=== PATIENT | female | born 1985 | race Caucasian/White ===

== ENCOUNTER → 2017-11-05 | Outpatient (CLI) | payer OTHER ==
[2017-11-05 11:24] LABS: FREE T3 2.36 PG/ML (2.18-3.98); FREE T4 0.92 NG/DL (0.76-1.46); HDL CHOLESTEROL 31.8 MG/DL (40.0-60.0); LDL CHOLESTEROL 135 MG/DL (0-99)
[2017-11-05 15:13] LABS: HEMOGLOBIN A1b 0.9 %; HEMOGLOBIN Ao 85.2 %; HEMOGLOBIN LA1C 2.1 %; HEMOGLOBIN P3 3.6 %
== END ==
LOC: PLAB 09:41
PROVIDERS: ATTEND Obstetrics & Gynecology
DX: R73.03 Prediabetes (principal); E03.9 Hypothyroidism, unspecified; E78.5 Hyperlipidemia, unspecified; N92.0 Excessive and frequent menstruation with regular cycle
CPT/HCPCS: 36415; 80061; 83036; 84403; 84439; 84443; 84481; 84681

== ENCOUNTER 2018-10-27 11:06 | Inpatient (IN) ==
--- NOTE | 2018-10-27 11:34 | ED ---
History of Present Illness Primary Care Physician: [facility] Primary Care Physician Smoke Inspector Dr. Daniels Chief Complaint: I feel a bulge in my vagina History of Present Illness: 33-year-old at 17 weeks and 3 days presents complaining of a bulge note while in OB ED patient screaming and subsequently ruptured membranes. Reports cramping times 2 days. 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 Past medical history denies Allergies denies Past surgical history denies Social history negative x3 previous tobacco use Weeks Gestation:: 17 Para: 0 : 1 Review of Systems All other systems reviewed negative except as stated in HPI Exam - Constitutional moderate distress - Routine HEENT Exam Head: Present: normocephalic ENT: Present: mucous membranes moist - Routine Neck Exam Present: supple - Routine Chest/Breast/Axilla Exam Chest wall: Absent: tenderness - Routine Respiratory Exam Absent: accessory muscle use - Routine Abdominal Exam Present: soft (Gravid) - Routine Exam Comments: Sterile speculum exam grossly ruptured copious amount of amniotic fluid with membranes noted at the cervical os. Cervix does not appear to be dilated Sterile pelvic exam cervix is closed 50% effaced no parts palpable at this time - Routine Skin Exam Present: intact - Routine Neurological Exam Present: alert, oriented X3 Assessment and Plan - Diagnosis (1) premature rupture of membranes Code(s): O42.919 - premature rupture of membranes, unspecified as to length of time between rupture and onset of labor, unspecified trimester Status: Acute (2) 17 weeks gestation of Code(s): Z3A.17 - 17 weeks gestation of Status: Acute - Plan Admit to L&D nonviable discussed with Dr. Daniels who will see and manage patient Discharge Plan - Discharge Disposition Patient Disposition: ED Admit(ED Internal Use Only) - Discharge Condition Condition: Stable - Physicians Team ED Provider: Chantelle Dickinson Primary Care Provider: Primary Care Nova Quinn - Discharge Instructions Print Language: Stateless
[2018-10-27] MEDS ORDERED: Naloxone Inj 0.4 MG/ML Vial IV.PUSH PRN ×2 (11:36→19:20)
[2018-10-27] MEDS ORDERED: Sod Chloride 0.9% Inj 1,000 ML IV.CONT PRN (11:36)
[2018-10-27] MEDS ORDERED: Sodium Chlor 0.9% Inj 500 ML IV.SIG PRN (11:36)
[2018-10-27] MEDS ORDERED: Oxytocin 30 Units/500ml Premix 30 UNITS/500 ML BAG IV.SIG ONE (11:36)
[2018-10-27] MEDS ORDERED: fentaNYL Citrate Inj 100 MCG/2 ML Ampul IV.PUSH PRN ×2 (11:36)
[2018-10-27] MEDS ORDERED: Citric Acid/Sodium Citrate Liq 30 ML UDC PO SCH (11:45)
[2018-10-27] MEDS ORDERED: Acetaminophen 325 MG Tablet PO PRN ×2 (13:00→19:20)
[2018-10-27 14:56] LABS: Baso % (Auto) 0.2 % (0.0-2.0); Eos # (Auto) 0.1 th/mm3 (0.0-0.4); Eos % (Auto) 1.2 % (0.0-4.0); Hematocrit 35.7 % (35.0-46.0); Hemoglobin 11.8 gm/dL (11.6-15.3); Lymph # (Auto) 2.4 th/mm3 (1.0-4.8); Lymph % (Auto) 19.8 % (9.0-44.0); Mean Corpuscular HGB Conc 33.1 % (32.0-36.0); Mean Corpuscular Hemoglobin 28.2 pg (27.0-34.0); Mean Corpuscular Volume 85.1 fL (80.0-100.0); Mean Platelet Volume 7.4 fL (7.0-11.0); Mono # (Auto) 0.5 th/mm3 (0.0-0.9); Mono % (Auto) 4.5 % (0.0-8.0); Neut # (Auto) 8.9 th/mm3 (1.8-7.7); Neut % (Auto) 74.3 % (16.0-70.0); Platelet Count 250 th/mm3 (150-450); Red Blood Count 4.19 mil/mm3 (4.00-5.30); Red Cell Distribution Width 17.4 % (11.6-17.2)
[2018-10-27] MEDS: Morphine Sulfate Inj 8 MG/ML Vial IV.PUSH PRN ×2 (15:24→17:08)
[2018-10-27 15:25] LABS: Bacteria,Urine Rare /hpf; Bilirubin,Urine Negative (Negative); Clarity,Urine Clear (Clear); Color,Urine Straw (Yellw/Straw); Glucose,Urine (UA) Negative (Negative); Hyaline Casts,Urine 1 /lpf (0-3); Leukocyte Esterase,Urine Negative (Negative); Mucus,Urine Few /lpf (Occasional); Nitrite,Urine Negative (Negative); Specific Gravity,Urine 1.005 (1.002-1.035); Squamous Epithelial Cell,Urine 1 /hpf (0-5)
[2018-10-27 15:30] LABS: Amphetamine Urine With Conf Neg (Neg); Benzodiazepine Urine With Conf Neg (Neg); Cocaine Urine With Conf Neg (Neg); Opiates Urine With Conf Neg (Neg)
[2018-10-27 15:53] LABS: Cannabinoid Urine With Conf Neg (Neg)
[2018-10-27] MEDS ORDERED: Diphtheria/Tetanus/Pertussis Vaccine Inj 0.5 ML Syringe IM ONE (16:00)
[2018-10-27] MEDS ORDERED: Measles/Mumps/Rubella Vaccine Inj 0.5 ML Vial SQ ONE (16:00)
[2018-10-27] MEDS ORDERED: Lidocaaine 1.5%/Epinephrine 1:200,000 PF Inj 5 ML Amp ONE (17:19)
[2018-10-27] MEDS ORDERED: Lidocaine PF 1% Inj 5 ML Vial ONE (17:19)
[2018-10-27] MEDS ORDERED: fentaNYL 2MCG-Bupiv 0.125% Epi 150 ML EPIDURAL ONE (17:24)
[2018-10-27] MEDS ORDERED: Morphine Inj 4 MG/ML Vial IV.PUSH PRN (18:06)
[2018-10-27] MEDS ORDERED: fentaNYL Citrate Inj 100 MCG/2 ML Ampul EPIDURAL ONE (18:38)
[2018-10-27] MEDS ORDERED: fentaNYL 2MCG-Bupiv 0.125% Epi 150 ML EPIDURAL PRN (18:38)
[2018-10-27] MEDS ORDERED: miSOPROStol 200 MCG Tablet ONE (19:12)
[2018-10-27] MEDS ORDERED: Witch Hazel 50%/Glyderin 12.5% 40 Pad Jar RECTAL PRN (19:20)
[2018-10-27] MEDS ORDERED: Benzocaine 20% Top Spray 60 ML Can TOPICAL PRN (19:20)
[2018-10-27] MEDS ORDERED: Bisacodyl 10 MG Supp RECTAL PRN (19:20)
--- NOTE | 2018-10-27 19:28 | P.OBDELI ---
Weeks Gestation: 17 Patient Started Active Labor: Yes Active Labor Start Date: 10/27/18 Medical Induction of Labor: Yes Artificial Rupture of Membrane: No Anesthesia: Epidural Episiotomy: none Vaginal Delivery: Normal Presentation: Other Nuchal Cord: x1 Delayed Cord Clamping (45 sec): No Placenta: Spontaneous delivery, Intact Laceration: None : Female Infant Female A score (1 min): 0 score (5 min): 0 (Delivery of non viable 17 week fetus followed by delivery of placenta. No or placental abnormalities seen. Bleeding is minimal afterwards but will give 200 micrograms of cytotec now.)
[2018-10-27] MEDS ORDERED: miSOPROStol 200 MCG Tablet PO ONE (19:32)
[2018-10-27] MEDS ORDERED: Zolpidem Tartrate 5 MG Tablet PO PRN (21:00)
[2018-10-28] MEDS: Senna/Docusate Sodium 8.6/50 MG Tablet PO SCH ×2 (00:53→09:02)
[2018-10-28 05:53] VITALS: RESP 16
[2018-10-28] MEDS ORDERED: Levothyroxine 75 MCG Tablet PO SCH (06:00)
[2018-10-28 07:27] VITALS: BP 102/70; PULSE 83; TEMP 97.7
--- NOTE | 2018-10-28 12:25 | P.PNOB ---
Subjective Post day: 1 Objective Vital Signs/I&O: Vital Signs 10/27/18 15:28 10/27/18 15:30 10/27/18 17:27 Temperature Pulse Rate 80 83 Respiratory Rate 18 Blood Pressure 118/68 117/68 10/27/18 17:30 10/27/18 17:40 10/27/18 18:00 Temperature Pulse Rate 73 Respiratory Rate 16 16 Blood Pressure 110/76 10/27/18 18:01 10/27/18 18:16 10/27/18 18:40 Temperature Pulse Rate 78 75 81 Respiratory Rate Blood Pressure 97/55 L 105/61 110/58 L 10/27/18 18:55 10/27/18 19:00 10/27/18 19:15 Temperature Pulse Rate 81 Respiratory Rate 18 18 Blood Pressure 110/54 L 10/27/18 19:16 10/27/18 19:45 10/27/18 20:00 Temperature Pulse Rate 80 81 Respiratory Rate 18 Blood Pressure 114/65 107/64 10/27/18 20:15 10/27/18 20:16 10/27/18 20:45 Temperature Pulse Rate 78 80 80 Respiratory Rate 18 16 Blood Pressure 102/55 L 104/61 10/27/18 21:58 10/27/18 22:44 10/28/18 00:54 Temperature 99.1 F 98.6 F Pulse Rate 85 86 80 Respiratory Rate 18 18 18 Blood Pressure 108/68 100/64 106/62 10/28/18 05:52 10/28/18 07:26 Temperature 98.3 F 97.7 F Pulse Rate 86 83 Respiratory Rate 16 16 Blood Pressure 94/51 L 102/70 Intake & Output 10/27/18 10/28/18 10/28/18 18:59 06:59 18:59 Intake Total 1999 Balance 1999 Weight 113.398 kg Intake: IV 1999 LR 1000 mL Inj 1,000 ML @ 125 1999 mls/hr IV.CONT .Q8H [facility] Rx#: [id number] Result Diagrams: 10/27/18 14:25 Objective Remarks: GENERAL: Well-nourished, well-developed patient. CARDIOVASCULAR: Regular rate and rhythm without murmurs, gallops, or rubs. RESPIRATORY: Breath sounds equal bilaterally. No accessory muscle use. ABDOMEN/GI: Abdomen soft, non-tender. Fundus: Firm, non-tender at umbilicus. GENITOURINARY: Light to moderate bleeding. EXTREMITIES: No cyanosis or edema, non-tender, without signs of DVT. Assessment and Plan - Diagnosis (1) Vaginal delivery Code(s): O80 - Encounter for full-term uncomplicated delivery Status: Acute Plan: routine (2) 17 weeks gestation of Code(s): Z3A.17 - 17 weeks gestation of Status: Acute - Plan pt doing well,tearful denies pain information for support groups given routine care Discharge Planning: today
== END 2018-10-28 11:10 | disposition home or self-care (01) ==
LOC: HOBED 11:06 → H2E 11:06 → OBSVTOIN 11:36 → H2E 12:12
PROVIDERS: ADMIT Obstetrics & Gynecology; ATTEND Obstetrics & Gynecology